=== PATIENT | male | born 1965 | race Caucasian/White ===

== ENCOUNTER 2018-09-10 16:02 | Emergency (ER) | payer BC, OTHER ==
--- NOTE | 2018-09-10 16:55 | ER Document Report ---
ED Medical Screen (RME) - General Chief Complaint: Insect Bite Stated Complaint: POSSIBLE INSECT BITE Time Seen by Provider: 09/10/18 16:50 Primary Care Provider: JOSE TORO [Primary Care Provider] - Follow up as needed Mode of Arrival: Ambulatory Information source: Patient Notes: Patient presents with complaints of infection to the right fifth digit. Patient reports started hurting on Wednesday or he was bit by something he did not see. He was evaluated by urgent care and his provider received 2 shots of Rocephin and is taking Septra and Keflex. Reports erythema swelling and pain are worse. Reports fever. Has been taking ibuprofen and hydrocodone. Reports difficult to flex his finger due to swelling. Good cap refill. I have greeted and performed a rapid initial assessment of this patient. A comprehensive ED assessment and evaluation of the patient, analysis of test results and completion of the medical decision making process will be conducted by additional ED providers. Dictation of this chart was performed using voice recognition software; therefore, there may be some unintended grammatical errors. TRAVEL OUTSIDE OF THE [place] IN LAST 30 DAYS: No - Related Data Allergies/Adverse Reactions: codeine Allergy (Verified 09/10/18 16:03) Past Medical History - Past Medical History Cardiac Medical History: Reports: Hx Hypercholesterolemia, Hx Hypertension Renal/ Medical History: Denies: Hx Peritoneal Dialysis Past Surgical History: Reports: Hx Orthopedic Surgery - bilateral knees Physical Exam - Vital signs Vitals: Temp Pulse Resp BP Pulse Ox 99.2 F 91 16 162/95 H 99 09/10/18 16:10 09/10/18 16:10 09/10/18 16:10 09/10/18 16:10 09/10/18 16:10 Course - Vital Signs Vital signs: Temp Pulse Resp BP Pulse Ox 99.2 F 91 16 162/95 H 99 09/10/18 16:10 09/10/18 16:10 09/10/18 16:10 09/10/18 16:10 09/10/18 16:10 Doctor's Discharge - Discharge Referrals: JOSE TORO [Primary Care Provider] - Follow up as needed
--- NOTE | 2018-09-10 17:23 | RADIOLOGY REPORT (SQ) ---
EXAM DESCRIPTION: HAND RIGHT 3 VIEWS COMPLETED DATE/TIME: 09/10/2018 5:03 pm REASON FOR STUDY: insect bite, infected, pain COMPARISON: None. EXAM PARAMETERS: NUMBER OF VIEWS: Three views. TECHNIQUE: AP, lateral and oblique radiographic images acquired of the right hand. LIMITATIONS: None. FINDINGS: MINERALIZATION: Normal. BONES: No acute fracture or dislocation. No worrisome bone lesions. JOINTS: No effusions. SOFT TISSUES: Soft tissue swelling about the medial (hypothenar) right hand. OTHER: No other significant finding. IMPRESSION: No fracture or dislocation of the right hand. Soft tissue swelling about the medial (hyp othenar) right hand. TECHNICAL DOCUMENTATION: JOB ID: [id number] [employer]- All Rights Reserved Reading location - IP/workstation name: [email or web address]
[2018-09-10] MEDS ORDERED: VANCOMYCIN HCL INJ 1000 MG VIAL IV ONE (18:27)
[2018-09-10] MEDS ORDERED: MORPHINE SULFATE 10 MG/ML INJ IV ONE ×2 (18:28→23:29)
[2018-09-10] MEDS ORDERED: DIPHENHYDRAMINE HCL 50 MG/ML VIAL IV ONE (18:28)
[2018-09-10] MEDS ORDERED: NORMAL SALINE 1000 ML 2,000 ML IV ONE (18:28)
--- NOTE | 2018-09-10 18:30 | ER Document Report ---
Addendum entered and electronically signed by TAM MELTON PA 09/11/18 01:09: Course - Re-evaluation Re-evalutation: 09/11/18 01:05 Patient reevaluated at bedside, transfer team is here, patient states pain medication has helped, no significant change from prior evaluation, stable for transport. - Vital Signs Vital signs: Temp Pulse Resp BP Pulse Ox 99 F 76 20 159/92 H 98 09/10/18 23:32 09/10/18 23:32 09/10/18 23:32 09/10/18 23:32 09/10/18 23:32 - Laboratory Result Diagrams: 09/10/18 19:01 09/10/18 19:01 Laboratory results interpreted by me: 09/10/18 09/10/18 19:01 19:01 WBC 16.8 H Absolute Neutrophils 11.6 H ALT 14 L Total Protein 8.7 H Addendum entered and electronically signed by TAM MELTON PA 09/10/18 23:31: Course - Re-evaluation Re-evalutation: 09/10/18 23:25 Patient does have a room assignment, however transport is not available for the next few hours, he should be leaving in approximately 3 to 4 hours. He is requesting pain medication for his hand. He was evaluated bedside. Alert and well-appearing. Discussed updates, patient states understanding and agreement. - Vital Signs Vital signs: Temp Pulse Resp BP Pulse Ox 99.1 F 79 16 161/101 H 98 09/10/18 20:45 09/10/18 20:45 09/10/18 20:45 09/10/18 20:45 09/10/18 20:45 - Laboratory Result Diagrams: 09/10/18 19:01 09/10/18 19:01 Laboratory results interpreted by me: 09/10/18 09/10/18 19:01 19:01 WBC 16.8 H Absolute Neutrophils 11.6 H ALT 14 L Total Protein 8.7 H Original Note: ED General - General Chief Complaint: Insect Bite Stated Complaint: POSSIBLE INSECT BITE Time Seen by Provider: 09/10/18 16:50 Primary Care Provider: MUNA,NO [NO LOCAL MD] - Follow up as needed Mode of Arrival: Ambulatory TRAVEL OUTSIDE OF THE [place] IN LAST 30 DAYS: No - HPI Notes: 53-year-old male to the emergency department with complaints of progressively worsening hand infection since today. Patient states that on Wednesday this week he was cutting some bushes in his yard when he felt an insect bite him on his right pinky finger. He got concerned that it was infected on and presented to urgent care and had 2 g of Rocephin IM and was started on Bactrim and Keflex. He states he has been faithful on the oral antibiotics. He then presented to his primary care physician in [place], [place] on Wednesday because the wound was not getting better. His primary care physician gave him 1 g of Rocephin in the office. He states that today the hand has gotten worse and the redness has come down off of the pinky finger and onto the back of his hand. He also states that he has had a fever. He presented to an urgent care locally and had a measured fever of 100.7. He was told he needed to come to the emergency department for IV antibiotics and likely admission. He is up-to-date on his immunizations. He is not diabetic. He has not had any drainage from his hand. - Related Data Allergies/Adverse Reactions: codeine Allergy (Verified 09/10/18 16:03) Past Medical History - General Information source: Patient - Social History Smoking Status: Never Smoker Frequency of alcohol use: None Drug Abuse: None Family History: Reviewed & Not Pertinent Patient has suicidal ideation: No Patient has homicidal ideation: No - Past Medical History Cardiac Medical History: Reports: Hx Hypercholesterolemia, Hx Hypertension Renal/ Medical History: Denies: Hx Peritoneal Dialysis Past Surgical History: Reports: Hx Orthopedic Surgery - bilateral knees Review of Systems - Review of Systems Constitutional: Fever. denies: Chills EENT: No symptoms reported Cardiovascular: denies: Chest pain, Dyspnea, Syncope Respiratory: denies: Cough, Short of breath Gastrointestinal: denies: Abdominal pain, Diarrhea, Nausea, Vomiting Musculoskeletal: Joint swelling, Muscle pain - Right hand pain and swelling Skin: Change in color - worsening right hand redness Hematologic/Lymphatic: No symptoms reported Neurological/Psychological: No symptoms reported -: Yes All other systems reviewed and negative Physical Exam - Vital signs Vitals: Temp Pulse Resp BP Pulse Ox 99.2 F 91 16 162/95 H 99 09/10/18 16:10 09/10/18 16:10 09/10/18 16:10 09/10/18 16:10 09/10/18 16:10 Interpretation: Hypertensive - General General appearance: Appears well, Alert - HEENT Head: Normocephalic, Atraumatic Eyes: Normal Pupils: PERRL - Respiratory Respiratory status: No respiratory distress Chest status: Nontender Breath sounds: Normal Chest palpation: Normal - Cardiovascular Rhythm: Regular Heart sounds: Normal auscultation Murmur: No - Abdominal Inspection: Normal Distension: No distension Bowel sounds: Normal Tenderness: Nontender Organomegaly: No organomegaly - Back Back: Normal, Nontender - Extremities General upper extremity: Tender, Edema. No: Normal color, Normal temperature General lower extremity: Normal inspection, Nontender, Normal color, Normal ROM, Normal temperature, Normal weight bearing. No: Barry's sign Hand: Tender, Swelling, Other - To the right dorsal hand there is erythema, edema, and tenderness to palpation over the hypothenar region. To the dorsal right pinky just proximal to the PIP there is an noted insect bite with beefy erythema and induration. There is no drainage and no fluctuance. There is decrease of strength in extension of the right pinky finger against resistance with 4 out of 5 strength in extension. Attained 5 out of 5 strength in flexion of the right pinky finger. There is no tenderness along the flexor sheath and there is no circumferential edema. Finger is not stuck in flexion. Cap refill is less than 2 seconds. Radial pulses are intact and equal - Neurological Neuro grossly intact: Yes Cognition: Normal Orientation: AAOx4 Gomez Coma Scale Eye Opening: Spontaneous [place] Coma Scale Verbal: Oriented Gomez Coma Scale Motor: Obeys Commands [place] Coma Scale Total: 15 Speech: Normal Motor strength normal: LUE, RUE, LLE, RLE Sensory: Normal - Psychological Associated symptoms: Normal affect, Normal mood - Skin Skin Temperature: Hot Skin Moisture: Dry Skin Color: Erythema - See extremity for discussion on hand Course - Vital Signs Vital signs: Temp Pulse Resp BP Pulse Ox 99.1 F 79 16 161/101 H 98 09/10/18 20:45 09/10/18 20:45 09/10/18 20:45 09/10/18 20:45 09/10/18 20:45 - Laboratory Result Diagrams: 09/10/18 19:01 09/10/18 19:01 Laboratory results interpreted by me: 09/10/18 09/10/18 19:01 19:01 WBC 16.8 H Absolute Neutrophils 11.6 H ALT 14 L Total Protein 8.7 H - Diagnostic Test Radiology reviewed: Image reviewed, Reports reviewed - Transfer of Care Notes: 09/10/[address] Marcelino and she agrees that patient has failed outpatient therapy and should be admitted. We do not have orthopedic service here and patient will likely need washout of the finger. Discussed this with patient and his family and they would like to be transferred to [facility]. Discussed patient with Dr. Abeba Cain, hospitalist at [facility]. Agrees with plan for admission. He is aware of leukocytosis, x-ray, lactic acid, cultures drawn, patient's history of present illness to include failed antibiotic outpatient therapy. He is also aware need for transfers that patient has access to orthopedic consultation and services. He agrees with the plan and accepts patient onto his service. Note on patient and he is doing better. Pain is better controlled. I have updated him about the plan for transfer to [facility] and he agrees. Awaiting bed assignment from [facility] and then will transfer. Impression: Right hand cellulitis, right pinky finger likely evolving extensor tenosynovitis. Fever. Failed outpatient therapy. Patient to be admitted for IV Abx, ortho consultation to [facility]. Discharge - Discharge Clinical Impression: Cellulitis of right hand, Tenosynovitis of finger Condition: Stable Disposition: [facility] Admitting Provider: Dr. Cole Cain Referrals: LOCALMD,NO [NO LOCAL MD] - Follow up as needed
[2018-09-10 19:20] LABS: ABSOLUTE EOSINOPHILS # (AUTO) 0.1 10^3/uL (0.0-0.6); ABSOLUTE LYMPHOCYTES (AUTO) 3.8 10^3/uL (0.5-4.7); ABSOLUTE MONOCYTES (AUTO) 1.3 10^3/uL (0.1-1.4); ABSOLUTE NEUT (AUTO) 11.6 10^3/uL (1.7-8.2); BASOPHILS % (AUTO) 0.3 % (0-2); EOSINOPHILS % (AUTO) 0.7 % (0-6); HEMATOCRIT 41.8 % (37.9-51.0); HEMOGLOBIN 14.2 g/dL (13.5-17.0); LYMPHOCYTES % (AUTO) 22.6 % (13-45); MEAN CORPUSCULAR HEMOGLOBIN 29.9 pg (27.0-33.4); MEAN CORPUSCULAR HGB CONC 34.1 g/dL (32.0-36.0); MEAN CORPUSCULAR VOLUME 88 fl (80-97); MONOCYTES % (AUTO) 7.4 % (3-13); PLATELET COUNT 218 10^3/uL (150-450); RED BLOOD COUNT 4.77 10^6/uL (4.35-5.55); RED CELL DISTRIBUTION WIDTH 13.2 % (11.5-14.0); TOTAL CELLS COUNTED % (AUTO) 100 %; WHITE BLOOD COUNT 16.8 10^3/uL (4.0-10.5)
[2018-09-10 19:40] LABS: ALANINE AMINOTRANSFERASE 14 U/L (21-72); ALKALINE PHOSPHATASE 61 U/L (38-126); ANION GAP 10 (5-19); ASPARTATE AMINO TRANSFERASE 36 U/L (17-59); BILIRUBIN,DIRECT 0.3 mg/dL (0.0-0.4); BILIRUBIN,TOTAL 0.8 mg/dL (0.2-1.3); BLOOD UREA NITROGEN 15 mg/dL (7-20); CALCIUM 9.6 mg/dL (8.4-10.2); CARBON DIOXIDE 28 mmol/L (22-30); CHLORIDE 103 mmol/L (98-107); GLUCOSE 110 mg/dL (75-110); POTASSIUM 4.1 mmol/L (3.6-5.0); SODIUM 140.8 mmol/L (137-145); TOTAL PROTEIN 8.7 g/dL (6.3-8.2)
[2018-09-10] MEDS ORDERED: ONDANSETRON HCL INJ/PF 4 MG/2 ML SDV IV ONE (23:29)
[2018-09-11 01:29] VITALS: BP 162/98
== END 2018-09-11 01:10 | disposition short-term general hospital (02) ==
LOC: ER 16:02
DX: L03.113 Cellulitis of right upper limb (principal); M65.841 Other synovitis and tenosynovitis, right hand; S60.466A Insect bite (nonvenomous) of right little finger, initial encounter; R50.9 Fever, unspecified; W57.XXXA Bitten or stung by nonvenomous insect and other nonvenomous arthropods, initial encounter; I10 Essential (primary) hypertension
CPT/HCPCS: 96376; 99284; 96361; 96375; 96365; 36415; 87040; 85025; 80053; 83605; 73130; J1200; J2270; J2405; J7030; J3370